=== PATIENT | female | born 1995 | race American Indian/Alaskan Native ===

== ENCOUNTER 2017-04-26 15:34 | Emergency (ER) | payer MEDICAID ==
[2017-04-26 16:03] VITALS: BP 120/77; PULSE 77; RESP 18; TEMP 99.1
--- NOTE | 2017-04-26 16:28 | ED PDOC ---
Arrival/HPI - General Chief Complaint: Abnormal Skin Integrity Time Seen by Provider: 04/26/17 16:17 Historian: Patient - History of Present Illness Narrative History of Present Illness (Text): 04/26/17 16:25 21yo female with no PMhx who present with complaint of cold sores on her lower lip x 2days. States it started yesterday and became worse this morning. she denies any other body rash, fever, chills recent URI, any other complaint. Past Medical History - Provider Review Nursing Documentation Reviewed: Yes - Infectious Disease Hx of Infectious Diseases: None - Psychiatric Hx Substance Use: No Family/Social History - Physician Review Nursing Documentation Reviewed: Yes Family/Social History: Unknown Family HX Smoking Status: Never Smoked Hx Alcohol Use: No Hx Substance Use: No Allergies/Home Meds Allergies/Adverse Reactions: Allergies No Known Allergies Allergy (Verified 04/26/17 16:03) Review of Systems - Physician Review All systems were reviewed & negative as marked: Yes - Review of Systems Constitutional: Normal Eyes: Normal ENT: Other (Lip rash) Respiratory: Normal Cardiovascular: Normal Gastrointestinal: Normal Genitourinary Female: Normal Musculoskeletal: Normal Skin: Normal Neurological: Normal Endocrine: Normal Hemo/Lymphatic: Normal Psychiatric: Normal Physical Exam Vital Signs Reviewed: Yes Vital Signs Temp Pulse Resp BP Pulse Ox 04/26/17 16:43 99 04/26/17 15:56 99.1 F 77 18 120/77 98 Temperature: Afebrile Blood Pressure: Normal Pulse: Regular Respiratory Rate: Normal Appearance: Positive for: Well-Appearing, Non-Toxic, Comfortable Pain Distress: None Mental Status: Positive for: Alert and Oriented X 3 - Systems Exam Head: Present: Atraumatic, Normocephalic Pupils: Present: PERRL Extroacular Muscles: Present: EOMI Conjunctiva: Present: Normal Mouth: Present: Moist Mucous Membranes. No: Normal Lips (Vesicles noted on the lower lip) Neck: Present: Normal Range of Motion Respiratory/Chest: Present: Clear to Auscultation, Good Air Exchange. No: Respiratory Distress, Accessory Muscle Use Cardiovascular: Present: Regular Rate and Rhythm, Normal S1, S2. No: Murmurs Abdomen: Present: Normal Bowel Sounds. No: Tenderness, Distention, Peritoneal Signs Back: Present: Normal Inspection Upper Extremity: Present: Normal Inspection. No: Cyanosis, Edema Lower Extremity: Present: Normal Inspection. No: Edema Neurological: Present: GCS=15, CN II-XII Intact, Speech Normal Skin: Present: Warm, Dry, Normal Color. No: Rashes Psychiatric: Present: Alert, Oriented x 3, Normal Insight, Normal Concentration Medical Decision Making - Medication Orders Current Medication Orders: Discontinued Medications Valacyclovir HCl (Valtrex) 2 gm PO STAT STA PRN Reason: Protocol Stop: 04/26/17 16:18 Last Admin: 04/26/17 16:40 Dose: 2 gm Disposition/Present on Arrival - Present on Arrival Any Indicators Present on Arrival: No History of DVT/PE: No History of Uncontrolled Diabetes: No Urinary Catheter: No History of Decub. Ulcer: No History Surgical Site Infection Following: None - Disposition Have Diagnosis and Disposition been Completed?: Yes Diagnosis: Herpes simplex Disposition: HOME/ ROUTINE Disposition Time: 16:30 Patient Plan: Discharge Condition: STABLE Discharge Instructions (ExitCare): Oral Herpes Simplex Virus Infections (ED) Additional Instructions: Follow up with your Doctor Return to ED for any new or worsening symptoms Prescriptions: valACYclovir [Valtrex] 2 gm PO ONCE #4 tab Ref[place]: [facility] [place] [facility] [place] - Follow up with primary Forms: [facility] (Telugu)
[2017-04-26 16:43] VITALS: O2SAT 99
== END 2017-04-26 16:43 | disposition home or self-care (01) ==
LOC: ED 15:34
DX: B00.1 Herpesviral vesicular dermatitis (principal)

== ENCOUNTER 2018-08-17 12:14 | Emergency (ER) | payer MEDICAID ==
[2018-08-17 12:57] VITALS: BMI 16.6
[2018-08-17 13:26] VITALS: BP 120/78; PULSE 62; RESP 18; TEMP 98.2; O2SAT 100
--- NOTE | 2018-08-17 14:57 | ED PDOC ---
Arrival/HPI - General Historian: Patient - History of Present Illness Narrative History of Present Illness (Text): 08/17/18 15:05 22yr old female presents wanting test. pt states she hasnt had a period since April and is concerned that she may be . Patient denies abdominal pain. No nausea vomiting diarrhea constipation. No chest pain or shortness of breath. No fevers or chills. No other complaints <Giovanna Marin - Last Filed: 08/17/18 19:40> <Kun Howard - Last Filed: 08/22/18 12:07> - General Chief Complaint: Female Genitourinary Time Seen by Provider: 08/17/18 12:25 Past Medical History - Provider Review Nursing Documentation Reviewed: Yes Primary Care Provider: Non [facility] Provider, - Travel History Have you recently traveled outside [place] w/in the past 3 mons?: No - Infectious Disease Hx of Infectious Diseases: None - Psychiatric Hx Substance Use: No - Anesthesia Hx Anesthesia: No <Giovanna Marin - Last Filed: 08/17/18 19:40> Family/Social History - Physician Review Nursing Documentation Reviewed: Yes Family/Social History: Unknown Family HX Smoking Status: Light Smoker < 10 Cigarettes Daily Hx Alcohol Use: No Hx Substance Use: No <Giovanna Marin - Last Filed: 08/17/18 19:40> Allergies/Home Meds <Giovanna Marin - Last Filed: 08/17/18 19:40> <Kun Howard - Last Filed: 08/22/18 12:07> Allergies/Adverse Reactions: Allergies No Known Allergies Allergy (Verified 06/16/18 16:27) Review of Systems - Review of Systems Constitutional: absent: Fatigue, Fevers Respiratory: absent: SOB, Cough Cardiovascular: absent: Chest Pain, Palpitations Gastrointestinal: absent: Abdominal Pain, Constipation, Diarrhea, Nausea, Vomiting Genitourinary Female: absent: Dysuria, Frequency, Hematuria, Vaginal Bleeding, Vaginal Discharge Musculoskeletal: absent: Arthralgias, Back Pain, Neck Pain Skin: absent: Rash, Pruritis Neurological: absent: Headache, Dizziness Psychiatric: absent: Anxiety, Depression, Suicidal Ideation <Giovanna Marin - Last Filed: 08/17/18 19:40> Physical Exam Vital Signs Reviewed: Yes Vital Signs Temp Pulse Resp BP Pulse Ox 08/17/18 12:57 98.2 F 62 18 120/78 100 Temperature: Afebrile Blood Pressure: Normal Pulse: Regular Respiratory Rate: Normal Appearance: Positive for: Well-Appearing, Non-Toxic, Comfortable Pain Distress: None Mental Status: Positive for: Alert and Oriented X 3 - Systems Exam Head: Present: Atraumatic Mouth: Present: Moist Mucous Membranes Neck: Present: Normal Range of Motion Respiratory/Chest: Present: Clear to Auscultation Cardiovascular: Present: Regular Rate and Rhythm Abdomen: No: Tenderness, Distention, Rebound, Guarding Neurological: Present: GCS=15, Speech Normal Skin: Present: Warm, Dry, Normal Color. No: Rashes Psychiatric: Present: Alert, Oriented x 3 <Giovanna Marin - Last Filed: 08/17/18 19:40> Vital Signs Temp Pulse Resp BP Pulse Ox 08/17/18 12:57 98.2 F 62 18 120/78 100 <Kun Howard - Last Filed: 08/22/18 12:07> Medical Decision Making ED Course and Treatment: 08/17/18 Patient presents requesting test. Urine hCG negative. Beta hCG pending. Prior to beta-hCG results. The patient eloped from the emergency room. Impression: Evaluation for , test negative Patient eloped from the ER <Giovanna Marin - Last Filed: 08/17/18 19:40> - Lab Interpretations Lab Results: Beta HCG, Quant < 2.39 mIU/mL (0-6.15) 08/17/18 13:50 <Kun Howard - Last Filed: 08/22/18 12:07> - PA / [employer] GRINDER / Resident Statement / has reviewed & agrees with the documentation as recorded. <Kun Howard - Last Filed: 08/22/18 12:07> Disposition/Present on Arrival - Present on Arrival Any Indicators Present on Arrival: No History of DVT/PE: No History of Uncontrolled Diabetes: No Urinary Catheter: No History of Decub. Ulcer: No History Surgical Site Infection Following: None - Disposition Have Diagnosis and Disposition been Completed?: Yes Disposition Time: 13:40 Patient Plan: Other (ELOPED) <Giovanna Marin - Last Filed: 08/17/18 19:40> <Kun Howard - Last Filed: 08/22/18 12:07> - Disposition Diagnosis: test negative Disposition: ELOPEMENT - ER ONLY Condition: FAIR Forms: [facility] ([place] Islander)
== END 2018-08-17 13:50 | disposition left against medical advice (07) ==
LOC: ED 12:14
DX: Z32.02 Encounter for pregnancy test, result negative (principal)